=== PATIENT | female | born 1985 | race Caucasian/White ===

== ENCOUNTER 2024-04-27 05:59 | Day surgery (SDC) | payer BC ==
[2024-04-27 06:11] LABS: HCG URINE TEST NEGATIVE (NEGATIVE)
[2024-04-27 06:13] VITALS: RESP 16
[2024-04-27] MEDS: CEFAZOLIN 2 GM/100 ML NaCl 2 GM/100 ML IVPB IV SCH (06:25)
[2024-04-27] MEDS: Lactated Ringers 1,000 ML IV SCH (06:29)
[2024-04-27] MEDS ORDERED: propofoL IV ONE (06:57)
[2024-04-27] MEDS ORDERED: Zofran 4 MG/2 ML VIAL ONE (06:58)
[2024-04-27] MEDS ORDERED: TORAdol 30 mg Injection ONE (06:58)
[2024-04-27] MEDS ORDERED: dexAMETHasone sodium phosphate ONE (06:58)
[2024-04-27] MEDS ORDERED: Sodium Chloride 0.9% 1000 ML 1,000 ML ONE (08:16)
[2024-04-27 09:26] VITALS: O2SAT 100
[2024-04-27 09:42] VITALS: BP 140/81; PULSE 66
[2024-04-27 09:59] VITALS: TEMP 97.4
--- NOTE | 2024-04-29 12:26 | OP ---
SURGERY DATE/TIME: 04/27/2024 [id number] PREOPERATIVE DIAGNOSIS: Menorrhagia. POSTOPERATIVE DIAGNOSIS: Menorrhagia. PROCEDURE: Hysteroscopy, dilation and curettage, with endometrial ablation using NovaSure. SURGEON: Wilber Gonzalez DO TRIMMING CUTTER MACHINE: Catherine Lucas. ANESTHESIA: General. ESTIMATED BLOOD LOSS: Minimal. COMPLICATIONS: None. INDICATIONS: The risks, benefits, indications, and alternatives of the procedure were reviewed with the patient prior to the procedure. Patient understood the risk of infection, bleeding, bowel injury, bladder injury, ureteral injury, uterine perforation, pelvic infection, thromboembolic disorder associated with the surgery, and desires to have the surgery as a possible means to alleviate her current medical condition. DESCRIPTION OF PROCEDURE AND FINDINGS: At this point, patient was taken to the operating room, given general sedation, placed in the dorsal lithotomy position, prepped and draped in the usual sterile fashion. A weighted speculum was then placed in the patient's vagina, and the anterior lip of the cervix was grasped with a single tooth tenaculum. Endocervical dilators were advanced through the endocervical region as a means to dilate the cervix, and a 5 mm hysteroscope was then placed in through the endocervical region toward the fundal region where visualization appeared to be within normal limits and no gross abnormalities were identified. From this point, the hysteroscope was removed and a curette was then placed into the fundus of the uterus where curettage was performed in all quadrants of the uterus, retrieving a [id number] amount of endometrial tissue. From this point, hemostasis was obtained. At this point, the NovaSure was then taken through the endocervical region and placed into the fundal region, retracted approximately 1 cm, and then engaged with a length of 6.5 cm and a width of 4.4 cm and, at this time, ablation took place for approximately 1 minute and 13 seconds. After completing ablation, the instrument was disengaged and removed from the uterine cavity without complication. From this point, all instruments were removed from the patient's vaginal region. The patient was then taken out of the dorsal lithotomy position, was taken out of anesthesia, was then taken to the recovery room in stable condition. All instruments and laps were accounted for x2.
== END 2024-04-27 09:57 | disposition left against medical advice (07) ==
LOC: SDC 05:59
PROVIDERS: ATTEND Obstetrics & Gynecology
DX: N92.0 Excessive and frequent menstruation with regular cycle (principal)
CPT/HCPCS: 58563; 76937; 81025; J0690; J1100; J1885; J2405; J2704